=== PATIENT | female | born 1970 | race Caucasian/White ===

== ENCOUNTER 2022-10-05 11:50 | Emergency (ER) | payer OTHER, BC ==
[2022-10-05] MEDS: Acetaminophen/HYDROcodone 325-10 MG Tab PO ONE (12:59)
== END 2022-10-05 13:23 | disposition home or self-care (01) ==
LOC: VM.ED 11:50
DX: S51.812A Laceration without foreign body of left forearm, initial encounter (principal); S40.012A Contusion of left shoulder, initial encounter; F17.200 Nicotine dependence, unspecified, uncomplicated; I10 Essential (primary) hypertension; Z88.8 Allergy status to other drugs, medicaments and biological substances; V49.50XA Passenger injured in collision with unspecified motor vehicles in traffic accident, initial encounter; Y92.410 Unspecified street and highway as the place of occurrence of the external cause
CPT/HCPCS: 71046; 73030-LT; 73060-LT; 99283; 99284; A9270-GY